=== PATIENT | male | born 1965 | race Hispanic/Latino ===

== ENCOUNTER 2020-03-03 10:03 | Emergency (ER) | payer SELFPAY ==
[2020-03-03] MEDS ORDERED: KETOROLAC TROMETHAMINE 30MG/ML ONE (10:31)
[2020-03-03] MEDS ORDERED: SODIUM CHLORIDE 0.9% 1000ML 1,000 ML IV ONE (10:32)
[2020-03-03] MEDS ORDERED: IOHEXOL-350 75 ML VIAL IV ONE (11:21)
[2020-03-03] MEDS ORDERED: ZOSYN 3.375GM+NS 50ML 50 ML IV ONE (12:22)
== END 2020-03-03 14:51 | disposition short-term general hospital (02) ==
LOC: EDH 10:03
DX: K61.2 Anorectal abscess (principal); E11.65 Type 2 diabetes mellitus with hyperglycemia; I10 Essential (primary) hypertension
CPT/HCPCS: 36415; 72193; 80048; 81001; 83605; 85025; 87040 ×2; 87077; 87088; 87186; 96361; 96365; 96366; 96375; 99285; J1885; J2543; J7030; Q9967

== ENCOUNTER 2021-07-03 20:12 | Inpatient (IN) | payer MEDICARE ==
[~2021-07-03] VITALS: Ht 165.1 cm; Wt 68.2 kg
[2021-07-03 20:54] LABS: BASOPHILS % (AUTO) 0.4 % (0.0-5.0); EOSINOPHILS % (AUTO) 0.6 % (0.0-8.0); HEMATOCRIT 38.3 % (42-54); LYMPHOCYTES % (AUTO) 7.1 % (21.0-51.0); MEAN CORPUSCULAR HEMOGLOBIN 30.4 pg (27.0-33.0); MEAN CORPUSCULAR HGB CONC 35.8 g/dL (32.0-36.0); MEAN CORPUSCULAR VOLUME 84.9 fL (79-99); NEUTROPHILS % (AUTO) 86.5 % (40.0-77.0); PLATELET COUNT (AUTO) 210 K/uL (130-400); RED BLOOD CELL COUNT(AUTO) 4.51 MIL/uL (4.50-6.20); RED CELL DISTRIBUTION WIDTH 13.1 % (11.0-15.5); WHITE BLOOD COUNT (AUTO) 17.5 K/uL (4.8-10.8)
[2021-07-03 20:56] LABS: ALBUMIN 3.6 g/dL (3.5-5.0)
[2021-07-03 21:00] LABS: POTASSIUM 2.8 mmol/L (3.5-5.1)
[2021-07-03 21:04] LABS: BILIRUBIN,TOTAL 0.4 mg/dL (0.2-1.0); TOTAL PROTEIN, SERUM 7.7 g/dL (6.0-8.3)
[2021-07-03] MEDS ORDERED: 0.9%NACL 1000ML 1,845 ML IV ONE (21:30)
[2021-07-03] MEDS ORDERED: ACETAMINOPHEN 500 MG TABLET PO ONE (21:30)
[2021-07-03 21:55] LABS: APPEARANCE,URINE CLOUDY (CLEAR); BILIRUBIN,URINE NEGATIVE (NEGATIVE); COLOR,URINE YELLOW (YELLOW); GLUCOSE, URINE (UA) 500 mg/dL (NEGATIVE); KETONES,URINE NEGATIVE (NEGATIVE); LEUKOCYTE ESTERASE ,URINE TRACE (NEGATIVE); NITRATE,URINE NEGATIVE (NEGATIVE); OCCULT BLOOD,URINE MODERATE (NEGATIVE); PH,URINE 7.5 (5.0-8.0); PROTEIN,URINE 100 mg/dL (NEGATIVE)
[2021-07-03 22:01] LABS: ABG OXYGEN SATURATION 70.7 % (95.0-99.0); BASE EXCESS,VENOUS BLOOD GAS 4.7 (-2.0-3.0); HCO3,VENOUS BLOOD GAS 29.1 (21.0-28.0); PCO2,VENOUS BLOOD GAS 43 (35-48); PH,VENOUS BLOOD GAS 7.454 (7.350-7.450)
[2021-07-03 22:06] LABS: BACTERIA,URINE Many /HPF (None Seen); WBC,URINE 26-50 /HPF (0-1)
[2021-07-03 22:07] LABS: SQUAMOUS EPITHELIAL CELL,UR Rare /HPF (0-2)
[2021-07-03 22:09] LABS: AMPHET/METH SCREEN,URINE NEGATIVE (NEGATIVE); BARBITURATE SCREEN, URINE NEGATIVE (NEGATIVE); BENZODIAZEPINES SCREEN,URINE NEGATIVE (NEGATIVE); CANNABINOID SCREEN,URINE NEGATIVE (NEGATIVE); COCAINE SCREEN,URINE NEGATIVE (NEGATIVE); OPIATE SCREEN,URINE NEGATIVE (NEGATIVE); PHENCYCLIDINE SCREEN,URINE NEGATIVE (NEGATIVE)
[2021-07-03] MEDS ORDERED: ZOSYN 3.375GM+NS 50ML 3.38 GM in 0.9%NACL 50ML 50 ML IV ONE (22:30)
[2021-07-03] MEDS ORDERED: ONDANSETRON 4MG INJ IV PRN (23:00)
[2021-07-03] MEDS ORDERED: POTASSIUM CHLORIDE 10% ELIXIR 20 MEQ/15 ML UDCUP PO PRN (23:00)
[2021-07-03] MEDS ORDERED: POTASSIUM CHLORIDE 10MEQ/100ML 10 MEQ/100 ML ML IV ONE (23:00)
[2021-07-03] MEDS ORDERED: POTASSIUM CHLORIDE 20MEQ/100ML 100 ML IV PRN (23:00)
[2021-07-03] MEDS ORDERED: LACTATED RINGERS 1000ML 1,845 ML IV ONE (23:00)
[2021-07-03] MEDS ORDERED: LIDOCAINE HCL-MPF 1% 2ML VIAL IV PRN (23:00)
[2021-07-03] MEDS ORDERED: POTASSIUM BICARB/CIT AC 25 MEQ TABLET.EFF PO ONE (23:00)
[2021-07-03] MEDS ORDERED: POTASSIUM CHLORIDE 10MEQ/100ML 100 ML IV ONE (23:00)
[2021-07-03] MEDS ORDERED: ACETAMINOPHEN 325 MG TAB PO PRN (23:00)
[2021-07-03] MEDS ORDERED: 0.9%NACL 50ML 50 ML IV ONE (23:38)
[2021-07-03] MEDS ORDERED: ZOSYN 3.375GM+NS 50ML 50 ML ONE (23:40)
[2021-07-04] MEDS: ZOSYN 3.375GM+NS 50ML 50 ML IV SCH ×3 (05:06→21:10)
[2021-07-04 05:37] LABS: BASOPHILS % (AUTO) 0.2 % (0.0-5.0); EOSINOPHILS % (AUTO) 0.3 % (0.0-8.0); MEAN CORPUSCULAR HEMOGLOBIN 30.9 pg (27.0-33.0); MEAN CORPUSCULAR HGB CONC 33.8 g/dL (32.0-36.0); MEAN CORPUSCULAR VOLUME 91.4 fL (79-99); MONOCYTES % (AUTO) 6.3 % (3.0-13.0); NEUTROPHILS % (AUTO) 84.7 % (40.0-77.0); PLATELET COUNT (AUTO) 57 K/uL (130-400); RED BLOOD CELL COUNT(AUTO) 1.52 MIL/uL (4.50-6.20); RED CELL DISTRIBUTION WIDTH 13.2 % (11.0-15.5)
[2021-07-04 05:49] LABS: INR 1.98 (0.85-1.15); PROTHROMBIN TIME 20.3 SEC (9.6-11.6)
[2021-07-04 05:50] LABS: PARTIAL THROMBOPLASTIN TIME 66.6 SEC (26.3-35.5)
[2021-07-04 05:51] LABS: CREATININE 0.2 mg/dL (0.5-1.5); HEMATOCRIT 13.9 % (42-54); MAGNESIUM 0.6 mg/dL (1.80-2.40); PHOSPHORUS 1.2 mg/dL (2.5-4.9); POTASSIUM 3.6 mmol/L (3.5-5.1)
[2021-07-04 05:59] LABS: HEMOGLOBIN A1C 8.1 % (4.0-6.0)
[2021-07-04 06:12] LABS: HEMATOCRIT 37.2 % (42-54)
[2021-07-04] MEDS: INSULIN HUMULIN R 100 UNIT/ML 3ML SQ SCH ×4 (07:30→21:00)
[2021-07-04] MEDS: TAMSULOSIN HCL 0.4 MG CAP.ER.24H PO SCH (08:20)
[2021-07-04] MEDS: FAMOTIDINE 20MG TAB PO SCH (08:20)
[2021-07-04] MEDS: ENOXAPARIN SODIUM 40 MG/0.4 ML SYRINGE SQ SCH (08:22)
[2021-07-04] MEDS ORDERED: ASPIRIN 81 MG EC TAB PO SCH (09:00)
[2021-07-04] MEDS ORDERED: AMLODIPINE 5 MG TAB PO SCH (09:00)
[2021-07-04] MEDS ORDERED: CARVEDILOL 12.5 MG TABLET PO SCH (09:00)
[2021-07-04] MEDS ORDERED: LISINOPRIL 40 MG TABLET PO SCH (09:00)
[2021-07-04] MEDS: LACTATED RINGERS 1000ML 1,000 ML IV SCH ×2 (12:23→22:34)
[2021-07-04] MEDS ORDERED: MAGNESIUM 2GM PREMIX 50ML 50 ML IV ONE (18:15)
[2021-07-04] MEDS ORDERED: MAGNESIUM 2GM PREMIX 50ML 50 ML IV PRN (18:30)
[2021-07-04 18:38] LABS: BASOPHILS % (AUTO) 0.5 % (0.0-5.0); EOSINOPHILS % (AUTO) 0.2 % (0.0-8.0); HEMATOCRIT 32.6 % (42-54); LYMPHOCYTES % (AUTO) 12.1 % (21.0-51.0); MEAN CORPUSCULAR HEMOGLOBIN 30.8 pg (27.0-33.0); MEAN CORPUSCULAR HGB CONC 35.6 g/dL (32.0-36.0); MEAN CORPUSCULAR VOLUME 86.5 fL (79-99); MONOCYTES % (AUTO) 4.5 % (3.0-13.0); NEUTROPHILS % (AUTO) 82.3 % (40.0-77.0); PLATELET COUNT (AUTO) 173 K/uL (130-400); RED BLOOD CELL COUNT(AUTO) 3.77 MIL/uL (4.50-6.20); RED CELL DISTRIBUTION WIDTH 13.1 % (11.0-15.5)
[2021-07-04 18:56] LABS: MAGNESIUM 2.1 mg/dL (1.80-2.40)
[2021-07-04 18:58] LABS: POTASSIUM 2.9 mmol/L (3.5-5.1)
[2021-07-04] MEDS ORDERED: POTASSIUM BICARB/CIT AC 25 MEQ TABLET.EFF ONE (20:59)
[2021-07-04] MEDS ORDERED: ATORVASTATIN 40 MG TABLET PO SCH (21:00)
[2021-07-04 23:45] VITALS: BP 130/74
[2021-07-05] MEDS ORDERED: LISI40TA9 PO (02:09)
[2021-07-05] MEDS ORDERED: TAMS-1 PO (02:09)
[2021-07-05] MEDS ORDERED: SITA1TAB6 PO (02:09)
[2021-07-05] MEDS ORDERED: CARV12.511 PO (02:09)
[2021-07-05] MEDS ORDERED: AEC81 PO (02:09)
[2021-07-05] MEDS ORDERED: ATOR40TA71 PO (02:09)
[2021-07-05] MEDS ORDERED: AMLO-258 PO (02:09)
[2021-07-05 03:41] VITALS: BP 140/67
[2021-07-05] MEDS: ZOSYN 3.375GM+NS 50ML 50 ML IV SCH ×3 (04:39→20:43)
[2021-07-05] MEDS: INSULIN HUMULIN R 100 UNIT/ML 3ML SQ SCH ×4 (06:13→20:45)
[2021-07-05 08:00] VITALS: BP 137/75
[2021-07-05 09:28] LABS: CREATININE 0.9 mg/dL (0.5-1.5); POTASSIUM 3.1 mmol/L (3.5-5.1)
[2021-07-05] MEDS: ATORVASTATIN 40 MG TABLET PO SCH (09:37)
[2021-07-05] MEDS: AMLODIPINE 5 MG TAB PO SCH (09:37)
[2021-07-05] MEDS: ASPIRIN 81 MG EC TAB PO SCH (09:40)
[2021-07-05] MEDS: CARVEDILOL 6.25 MG TABLET PO SCH ×2 (09:40→20:44)
[2021-07-05] MEDS: TAMSULOSIN HCL 0.4 MG CAP.ER.24H PO SCH (09:41)
[2021-07-05] MEDS: ENOXAPARIN SODIUM 40 MG/0.4 ML SYRINGE SQ SCH (09:41)
[2021-07-05] MEDS: FAMOTIDINE 20MG TAB PO SCH (09:41)
[2021-07-05] MEDS: KCL 20 MEQ ERTAB PO PRN ×2 (09:51→20:44)
[2021-07-05] MEDS: LACTATED RINGERS 1000ML 1,000 ML IV SCH (11:40)
[2021-07-05 12:00] VITALS: BP 137/75
[2021-07-05 16:00] VITALS: BP 148/74
[2021-07-05 19:00] VITALS: BP 147/63
[2021-07-06] VITALS (9 sets, daily range): BP systolic 109–189; BP diastolic 56–88
[2021-07-06] MEDS: LACTATED RINGERS 1000ML 1,000 ML IV SCH ×2 (01:00→12:51)
[2021-07-06] MEDS: ZOSYN 3.375GM+NS 50ML 50 ML IV SCH ×3 (04:22→21:00)
[2021-07-06] MEDS: AMLODIPINE 5 MG TAB PO SCH (05:51)
[2021-07-06] MEDS: CARVEDILOL 6.25 MG TABLET PO SCH ×2 (05:52→21:05)
[2021-07-06 06:58] LABS: BASOPHILS % (AUTO) 0.7 % (0.0-5.0); EOSINOPHILS % (AUTO) 1.5 % (0.0-8.0); HEMATOCRIT 33.7 % (42-54); LYMPHOCYTES % (AUTO) 16.2 % (21.0-51.0); MEAN CORPUSCULAR HEMOGLOBIN 30.5 pg (27.0-33.0); MEAN CORPUSCULAR HGB CONC 34.7 g/dL (32.0-36.0); MEAN CORPUSCULAR VOLUME 87.8 fL (79-99); MONOCYTES % (AUTO) 7.3 % (3.0-13.0); NEUTROPHILS % (AUTO) 73.8 % (40.0-77.0); PLATELET COUNT (AUTO) 171 K/uL (130-400); RED BLOOD CELL COUNT(AUTO) 3.84 MIL/uL (4.50-6.20); RED CELL DISTRIBUTION WIDTH 13.2 % (11.0-15.5); WHITE BLOOD COUNT (AUTO) 8.2 K/uL (4.8-10.8)
[2021-07-06 07:17] LABS: CREATININE 0.8 mg/dL (0.5-1.5); MAGNESIUM 1.6 mg/dL (1.80-2.40); POTASSIUM 3.1 mmol/L (3.5-5.1)
[2021-07-06] MEDS: INSULIN HUMULIN R 100 UNIT/ML 3ML SQ SCH ×4 (07:30→21:00)
[2021-07-06] MEDS: ASPIRIN 81 MG EC TAB PO SCH (09:28)
[2021-07-06] MEDS: FAMOTIDINE 20MG TAB PO SCH (09:28)
[2021-07-06] MEDS: ATORVASTATIN 40 MG TABLET PO SCH (09:29)
[2021-07-06] MEDS: TAMSULOSIN HCL 0.4 MG CAP.ER.24H PO SCH (09:29)
[2021-07-06] MEDS: ENOXAPARIN SODIUM 40 MG/0.4 ML SYRINGE SQ SCH (09:29)
[2021-07-06] MEDS: KCL 20 MEQ ERTAB PO PRN ×3 (15:53→22:17)
[2021-07-07] VITALS: BP 163/75
[2021-07-07] MEDS: LACTATED RINGERS 1000ML 1,000 ML IV SCH (03:28)
[2021-07-07] MEDS: ZOSYN 3.375GM+NS 50ML 50 ML IV SCH (03:29)
[2021-07-07 04:10] VITALS: BP 152/81
== END 2021-07-07 04:34 | DRG 872 ==
LOC: EDH 20:12 → EDHIP 22:47 → 4BH 07-04 22:42
PROVIDERS: ADMIT Internal Medicine; ATTEND Internal Medicine
DX: A41.50 Gram-negative sepsis, unspecified (principal); N39.0 Urinary tract infection, site not specified; G93.40 Encephalopathy, unspecified; Z16.23 Resistance to quinolones and fluoroquinolones; E87.6 Hypokalemia; E78.5 Hyperlipidemia, unspecified; I10 Essential (primary) hypertension; E11.9 Type 2 diabetes mellitus without complications; E78.00 Pure hypercholesterolemia, unspecified; Z20.822 Contact with and (suspected) exposure to COVID-19; F17.210 Nicotine dependence, cigarettes, uncomplicated; N40.0 Benign prostatic hyperplasia without lower urinary tract symptoms; I25.10 Atherosclerotic heart disease of native coronary artery without angina pectoris; N20.0 Calculus of kidney; B96.20 Unspecified Escherichia coli [E. coli] as the cause of diseases classified elsewhere; Z86.73 Personal history of transient ischemic attack (TIA), and cerebral infarction without residual deficits; Z83.3 Family history of diabetes mellitus
CPT/HCPCS: 36415; 36600; 70450; 71045; 74176; 76705; 80048; 80053; 80305; 81001; 82010; 82803; 82948; 83036; 83605; 83690; 83735; 84100; 84132; 84145; 84484; 85014; 85018; 85025; 85610; 85730; 87040; 87077; 87088; 87186; 87635; 87804; 93005; 97039; C9803; G0378; J1650; J1815; J2543; J3475; J7030; J7120